=== PATIENT | male | born 1935 | race African-American/Black ===

== ENCOUNTER 2016-12-29 13:06 | Inpatient (IN) | payer BC ==
[~2016-12-29] VITALS: Ht 165.1 cm; Wt 51.8 kg
--- NOTE | ~2016-12-29 | CR72 ---
[facility] A Service of [facility] & [facility] RADIOLOGY TEXT RESULTS PATIENT: STEPHANE BECKER LOCATION: [facility] [id number] : [birth year] UNIT #: [id number] AGE: [address]: Melisa Medrano MD SEX: M ORDER DR: [id number] [facility] [address] [place], [place] [address] [id number] I MR#: [id number] Acc #: [id number] NAME: STEPHANE BECKER : 1935 SEX: M STUDY DATE/TIME: 01/03/2017 14:53 UNIT: [facility] ROOM: [facility] STUDY DESCRIPTION: CR Chest Single View Portable Attending Physician: Melisa Medrano M.D. Ordering Physician: Moiz Epps M.D. MEDICAL IMAGING REPORT This report is preliminary unless electronic signature is present EXAM AP portable chest 01/03/2017 HISTORY Tunnel catheter placement. FINDINGS There is no visible pneumothorax following placement well-positioned right IJ dialysis catheter. Shallow lung expansion. Otherwise, there is no significant change since 12/29/2016. Diffuse chronic interstitial lung disease. No airspace consolidation or pleural effusion. Stable cardiomegaly. IMPRESSION No visible pneumothorax following placement of right IJ central venous catheter. Dictated by... John Muniz M.D. THIS IS AN ELECTRONICALLY VERIFIED REPORT John Muniz M.D. at 01/04/2017 9:50 PM NEDA/mustapha TD: 01/04/2017 03:20 JOB #: [id number] MEDICAL IMAGING REPORT Page 1 of 1 COPY
--- NOTE | ~2016-12-29 | US84 ---
[id number] [facility] [address] [place], [place] [address] [id number] I MR#: [id number] Acc #: [id number] NAME: STEPHANE BECKER : 1935 SEX: M STUDY DATE/TIME: 12/29/2016 16:29 UNIT: C5B ROOM: 553 STUDY DESCRIPTION: US LE Veins Complete Arcadio Stdy Attending Physician: Sanya Whiting M.D. Ordering Physician: Joss Hurtado D.O. Primary Care Physician: Marry Fatima MEDICAL IMAGING REPORT This report is preliminary unless electronic signature is present EXAM Bilateral lower extremity Doppler venous ultrasound 12/29/2016 HISTORY Shortness breath since this morning. TECHNIQUE Venous ultrasound examination of both lower extremities was performed using grayscale, spectral Doppler and color flow Doppler imaging. FINDINGS The examination is negative. There is no evidence of deep venous thrombus from the groin to the lower calf bilaterally. Visualized greater saphenous veins are also patent. IMPRESSION Negative examination. No evidence of lower extremity deep venous thrombosis. Dictated by... Rolanda Steve M.D. THIS IS AN ELECTRONICALLY VERIFIED REPORT Rloanda Steve M.D. at 12/30/2016 7:46 PM JOSE/mustapha TD: 12/30/2016 16:58 JOB #: [id number] MEDICAL IMAGING REPORT Page 1 of 1 COPY
--- NOTE | ~2016-12-29 | CO ---
Unit #: [id number] #: [id number] Patient: STEPHANE BECKER [id number] [facility]. [place], [place] [address] [id number] I MR#: [id number] NAME: STEPHANE BECKER ROOM: 553 Age: 81 Sex: M Admission Date: 12/29/2016 : 1935 Attending Physician: Melisa Medrano M.D. Primary Care Physician: Marry Fatima CONSULTATION REPORT REASON FOR CONSULTATION Heart failure. HISTORY OF PRESENT ILLNESS This is an 81-year-old male, who is known to Dr. Arreola, who has a history of hypertension, hyperlipidemia, and chronic systolic heart failure, where his ejection fraction in 2012 was 35% to 40%. His last echocardiogram in 02/2016 showed slight improvement of his heart failure to 40% to 45% with diastolic dysfunction. There is no record of heart catheterization in the past that the patient thinks he had a stress test that was normal. The patient presents to the emergency room with shortness of breath for 1 week. His dyspnea has worsened in the last 3 days. He had leg edema that also worsened yesterday. He denies cough, fever, or chills. He has no paroxysmal nocturnal dyspnea. He usually sleeps on 2 pillows which is his normal. He has a burn in his upper chest that he relates to reflux. No chest heaviness, pressure, or tightness. He denies jaw or arm pain. His dyspnea worsened with any movement and on exertion. He came to the emergency room for evaluation, where he is found to have an elevated BNP of 2962. His creatinine was 3.8, which is worse than his baseline. He has known chronic kidney disease and sees Dr. Daugherty, but the patient refuses hemodialysis. The patient's EKG shows changes in the anterolateral leads V2 to V6, I and aVL. Troponin has been negative. PAST MEDICAL HISTORY 1. 2D echocardiogram on 07/23/2015 showed an ejection fraction of 40% to 45% with impaired left ventricular relaxation. There are moderate mitral regurgitation and hggc-[id number] tricuspid regurgitation. 2. Hypertension. 3. Hyperlipidemia. 4. Chronic systolic heart failure with ejection fraction of 35% to 40% per echocardiogram on 05/2014. 5. COPD. 6. Diverticular disease. 7. Chronic kidney disease stage 3 to 4. 8. Daily EtOH use. 9. Former smoker. PAST SURGICAL HISTORY EGD and colonoscopy. 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 He states he has been reasonably active. He quit smoking 30 years ago, but previously smoked 2 packs of cigarettes a day for more than 40 years. He drinks 2 highballs daily. FAMILY HISTORY Positive for heart disease in his brother. ALLERGIES No known drug allergies. HOME MEDICATIONS Fish oil 1200 mg daily, ferrous gluconate 325 mg daily, Simvastatin 40 mg q.h.s., calcitriol 0.25 mcg daily, aspirin 81 mg daily, hydralazine 25 mg t.i.d., Prozac 20 mg daily, carvedilol 6.25 mg b.i.d., chlorthalidone 12.5 mg daily, colchicine 0.6 mg daily, isosorbide dinitrate 20 mg q.8 hours, Losartan 100 mg daily, Megace 400 mg b.i.d., Catapres 0.2 mg daily. REVIEW OF SYSTEMS CONSTITUTIONAL: Negative for fever or chills. Denies weight gain or weight loss. HEENT: No headache, hearing, vision changes, difficulty with swallowing. No dizziness. CARDIOVASCULAR: No symptoms of angina. Has rare palpitations. Denies paroxysmal nocturnal dyspnea or orthopnea. No syncope or near syncope. RESPIRATORY: Positive for dyspnea at rest, worse on exertion. Denies cough or hemoptysis. GASTROINTESTINAL: No abdominal pain, nausea, or vomiting. No constipation. No melena. EXTREMITIES: Negative for lower extremity edema. PHYSICAL EXAMINATION VITAL SIGNS: Blood pressure 152/99, heart rate 65, temperature 98.4, BMI of 20. GENERAL: This is an 81-year-old small framed male, who is in no acute respiratory distress. NEUROLOGIC: He is awake, alert, and oriented. There are no focal weaknesses. NECK: Trachea is midline. No thyromegaly or lymphadenopathy with positive jugular venous distention at 5 cm. HEART: S1 and S2. Heart sounds are normal. No murmurs. No rubs or clicks. Regular rate and rhythm. ABDOMEN: Soft, nontender with bowel sounds present. EXTREMITIES: Without leg edema. SKIN: Warm and dry. DIAGNOSTIC STUDIES LABORATORY RESULTS: I 90, BUN 48, creatinine 3.8, sodium 140, potassium 4.6. BNP 2962. Troponin less than 0.05 x2. White count 6.3, hemoglobin 12.3, hematocrit 38.4, and platelet count is 240. IMAGING STUDIES: Chest x-ray noted for diffuse coarse interstitial changes throughout both lungs may represent chronic fibrosis. Stable cardiomegaly. CARDIOVASCULAR STUDIES: EKG; sinus bradycardia, rate of 57 beats per minute with [address] wave inversion in the anterolateral leads V1 through V6, I and aVL. There is left axis deviation. Unit #: [id number] #: [id number] Patient: STEPHANE BECKER IMPRESSION 1. Acute on chronic systolic/diastolic heart failure with reduced ejection fraction of 40% to 45%. 2. Chronic obstructive pulmonary disease. 3. Hypertension. 4. Hyperlipidemia. 5. Chronic kidney disease stage 3 to 4. PLAN 1. Cardiology was consulted for congestive heart failure. We will continue on IV diuretics as per Renal. 2. We will start the patient on dopamine drip at low dose. 3. 2D echocardiogram will be done to reassess left ventricular systolic function. 4. No ITZEL inhibitor or ARB for cardiomyopathy because of chronic kidney disease. Losartan will be discontinued. 5. The patient is adamant about not wanting hemodialysis. In view of chest pain and negative troponin, no cardiac catheterization will be done. He does have EKG changes. We will repeat EKG. 6. We will follow the patient with you. Thank you for allowing us to assist in this patient's care. Dictated by... Cam Zuniga/melanie TD: 12/30/2016 20:19 JOB #: [id number] CONSULTATION REPORT Page 1 of 1 X Hua Jimenez APRN X CONSULTATION REPORT
--- NOTE | ~2016-12-29 | CO ---
Unit #: [id number] #: [id number] Patient: STEPHANE BECKER [id number] [place], [place] [address] [id number] I MR#: [id number] NAME: STEPHANE BECKER ROOM: 553 Age: 81 Sex: M Admission Date: 12/29/2016 : 1935 Attending Physician: Melisa Medrano M.D. Primary Care Physician: Marry Fatima CONSULTATION REPORT REASON FOR CONSULTATION Management of CKD stage 4. The patient was seen and examined. The chart was reviewed. HISTORY OF PRESENT ILLNESS This is an 81-year-old male with past medical history of chronic kidney disease stage 3/4, baseline serum creatinine seems to be since June 2014 between 2.6 and 4.5, the high has been 4.5 in 07/2015, who presents with a chief complaint of gradually worsening shortness of breath and lower extremity edema. The patient cannot say for how long this has been going on as he has forgetfulness according to his son and daughter present at the bedtime. He denies chest pain, skin rashes, hemoptysis, headache, fever, chills, abdominal pain, nausea, or vomiting. He was found to have a very high BNP and chronic interstitial changes on the chest x-ray. He was given low dose of Lasix yesterday with subsequent improvement of a shortness of breath. The patient denies dysuria, hematuria, or urinary tract symptoms. He has no other complains. PAST MEDICAL HISTORY CHF; hypertension; CKD stage 3/4, baseline as above; COPD; chronic anemia. PAST SURGICAL HISTORY EGD and colonoscopy. SOCIAL HISTORY He lives with his . He quit smoking. FAMILY HISTORY Mother has diabetes and history of kidney disease. ALLERGIES No known drug allergies. HOME MEDICATIONS Reviewed. They are significant for chlorthalidone and losartan. CURRENT MEDICATIONS Dobutrex drip, Lasix was given x1, Tylenol, and hydralazine 50 mg p.o. b.i.d. REVIEW OF SYSTEMS From renal standpoint, review of systems as above. Otherwise, denies Unit #: [id number] #: [id number] Patient: STEPHANE BECKER nausea, vomiting, abdominal pain, diarrhea, chest pain, fever, chills, or neck stiffness. PHYSICAL EXAMINATION VITAL SIGNS: Temperature 98.4, pulse 65, respirations 18, oxygen saturation 95%, blood pressure 152/99. GENERAL APPEARANCE: This is a well-developed, elderly male, sitting in bed, in no acute distress. HEENT: Atraumatic, normocephalic. Pupils are round and reactive to light. Extraocular movements are intact. Pharynx pink. No exudate. NECK: Supple. No carotid bruit. CHEST: Clear to auscultation bilaterally. Decreased air entry bilaterally, especially at the bases. CARDIOVASCULAR: Regular rate and rhythm. No rubs. No gallops. ABDOMEN: Soft. Nontender. Bowel sounds present in all 4 quadrants. EXTREMITIES: No cyanosis. No clubbing. +1 ankle edema bilaterally, NEUROLOGIC: Alert, awake, and grossly nonfocal. Sensation intact. DIAGNOSTIC STUDIES LABORATORY STUDIES: Glucose 90, BUN 48, creatinine 3.8, sodium 140, potassium 4.6, chloride 112, bicarb 19. Uric acid 3.7. Calcium 8.3, total protein 6.7, albumin 3.3. Urine protein 419, urine creatinine 85. WBC 6.3, hemoglobin 12.3, hematocrit 38.4, platelet count 240. Urinalysis; yellow clear, 1.012, pH 5.5, leukocyte esterase negative, nitrite negative, protein 3+, bile negative, blood trace. IMAGING STUDIES: Chest x-ray from yesterday shows diffuse coarse reticular and reticulonodular interstitial changes, may represent chronic fibrosis, similar to previous examination, no lung consolidation, and stable cardiomegaly. ASSESSMENT AND PLAN From renal standpoint: 1. Chronic kidney disease, stage 4 with prerenal variations in serum creatinine with heart failure. 2. Metabolic acidosis. 3. Hypertension. 4. Nephrotic range proteinuria. 5. Renal cyst. 6. Dyslipidemia. 7. Heart failure. From the renal standpoint: We will resume low dose diuretics, but not chlorthalidone, we will use torsemide low dose and adjust on a daily basis. Check a renal ultrasound. Quantify proteinuria with a 24-hour urine collection for protein and creatinine. Hold losartan for now. Further workup will be done as indicated by clinical course. The patient's baseline seems to be between the high 2 and mid 4 range from computer review. The above assessment and plan were discussed at length with the patient, his son, and his daughter present at the bedtime. They all voiced understanding and agreed to proceed with a plan as outlined above. They were given the opportunities to ask questions and as stated those were answered to their satisfaction. Unit #: [id number] #: [id number] Patient: STEPHANE BECKER Dictated by..Kevin Camacho TD: 12/31/2016 09:15 JOB #: [id number] CONSULTATION REPORT Page 1 of 1 X X CONSULTATION REPORT
--- NOTE | ~2016-12-29 | CR72 ---
[facility] A Service of [facility] RADIOLOGY TEXT RESULTS PATIENT: STEPHANE BECKER LOCATION: [place] [address] : [birth year] UNIT #: [id number] AGE: [address]: Sanya Whiting MD SEX: M ORDER DR: [id number] [facility] [address] [place], [place] [address] [id number] I MR#: [id number] Acc #: [id number] NAME: STEPHANE BECKER : 1935 SEX: M STUDY DATE/TIME: 12/29/2016 14:05 UNIT: [facility] ROOM: [facility] STUDY DESCRIPTION: CR Chest Single View Portable Attending Physician: Sanya Whiting M.D. Ordering Physician: Joss Hurtado D.O. Primary Care Physician: Marry Fatima MEDICAL IMAGING REPORT This report is preliminary unless electronic signature is present EXAM AP portable chest 12/29/2016 HISTORY Shortness breath for 2 days. COMPARISON PA and lateral chest radiograph 07/23/2015. FINDINGS Diffuse, coarse reticular and reticulonodular interstitial thickening is seen throughout both lungs, thought to be similar to the 07/23/2015 examination. No lung consolidations are identified. Stable mild cardiac enlargement. No pleural effusion is seen. No pneumothorax. IMPRESSION 1. Diffuse coarse reticular and reticulonodular interstitial changes throughout both lungs may represent changes of chronic fibrosis. Findings appear similar to the 2067 examination. 2. No lung consolidations. 3. Stable cardiomegaly. Dictated by... Rolanda Steve M.D. THIS IS AN ELECTRONICALLY VERIFIED REPORT Rolanda Steve M.D. at 12/30/2016 7:46 PM LLH/mustapha TD: 12/30/2016 09:31 JOB #: [id number] [facility] A Service of [facility] RADIOLOGY TEXT RESULTS PATIENT: STEPHANE BECKER LOCATION: [place] [address] : [birth year] UNIT #: [id number] AGE: [address]: Sanya Whiting MD SEX: M ORDER DR: MEDICAL IMAGING REPORT Page 1 of 1 COPY
--- NOTE | ~2016-12-29 | OR ---
Unit #: [id number] #: [id number] Patient: STEPHANE BECKER [id number] [facility]. [place], [place] [address] [id number] I MR#: [id number] NAME: STEPHANE BECKER ROOM: 553 Date of Procedure: 01/03/2017 Admission Date: 12/29/2016 Surgeon: Moiz Epsp M.D. : 1935 Attending Physician: Melisa Medrano M.D. Primary Care Physician: Martine Fatima Aprn OPERATIVE REPORT PREOPERATIVE DIAGNOSIS Chronic kidney disease. POSTOPERATIVE DIAGNOSIS Chronic kidney disease. PROCEDURE PERFORMED Placement of right jugular tunneled dialysis catheter, left cephalic vein thrombectomy, placement of left brachiocephalic fistula. ANESTHESIA Axillary block with MAC. ESTIMATED BLOOD LOSS 10 mL. COMPLICATIONS None. INDICATIONS Mr. Stephane Becker is an 81-year-old gentleman with chronic kidney disease, who has been advised to have dialysis access in the past, but has declined. He is now admitted with shortness of breath and lower extremity edema. He is agreed to immediate and long-term dialysis access. Preoperative vein mapping showed that his left cephalic vein is patent in the upper arm, but there was thrombus in the left forearm. His left cephalic vein was tentatively going to be used for creation of a fistula. DESCRIPTION OF PROCEDURE The patient was placed in supine position. His neck, chest, and left arm were prepped and sterilely draped. The table was placed in a Trendelenburg position. The right internal jugular vein was interrogated with ultrasound and found to be patent. 1% Xylocaine was used to infiltrate the skin and subcutaneous tissue over the right jugular vein. The jugular vein was cannulated under direct ultrasound guidance and a J-wire was threaded through the cannulating needle. The wire was advanced under fluoroscopy into the right atrium. An 11-blade was used to enlarge the puncture site. Dilators were passed over the wire to enlarge the tract. An introducer sheath was placed over the wire. A 23 cm cuff to tip NeXTstep catheter was placed through the introducer sheath. The sheath was split and removed. The table was taken out of Trendelenburg position. The catheter was positioned, so that its tip was in the right Unit #: [id number] #: [id number] Patient: STEPHANE BECKER. Additional 1% Xylocaine was used to infiltrate the skin and subcutaneous tissue on the anterior chest wall. A separate stab incision was made on the chest wall. A curved metal tunneling device was used to create a subcutaneous tunnel between the chest incision and the neck incision. The outer end of the catheter was brought through the subcutaneous tunnel. The Dacron cuff of the catheter was left within the tunnel. The catheter was cut to an appropriate length. An adapter was placed on the end of the catheter. Blood was able to be easily aspirated and flushed through each lumen of the catheter. The catheter was flushed with heparinized saline and clamped. The right neck incision was closed using 4-0 Vicryl subcuticular sutures. The catheter was sutured to the skin at the exit site with interrupted 3-0 nylon. Attention was then turned to the patient's left arm. The axillary block appeared to be working well. A transverse incision was made distal to the antecubital crease. Dissection continued through the subcutaneous tissue to identify the cephalic vein. The cephalic vein appeared to have thrombus in it in the antecubital region, but was patent above that level. The vein was dissected free circumferentially for about 3 cm. The vein was ligated distally with a 3-0 silk tie and transected. The vein was able to be everted to remove what appeared to be relatively fresh thrombus from the last 2 cm of the transected segment. A 2 mm coronary dilator was able to be passed easily through the vein. A 2.5 mm and 3 mm coronary dilator were also able to be easily passed through the vein. There was good backbleeding from the vein. The vein easily flushed with heparinized saline. The cephalic vein was felt to be adequate for use as a fistula. Dissection continued through the subcutaneous tissue to identify the brachial artery. There were actually 2 arteries in the antecubital region and the more superficial femoral artery was chosen for inflow. The artery was dissected free circumferentially for about 2 cm. The patient was given heparin 5000 units intravenously. Small vascular clamps were placed proximally and distally on the artery. An 11-blade was used to make a longitudinal incision on the artery, which was extended proximally and distally with Kaur scissors. The end of the cephalic vein was beveled to fit the size of the arteriotomy. The end of the vein was sewn to the side of the artery using running 6-0 Prolene circumferentially. Prior to completion of the anastomosis, blood was flushed retrograde and antegrade. Following completion of the anastomosis, there was an easily palpable thrill in the fistula. There was also a palpable radial and ulnar pulse at the wrist. Protamine 25 mg intravenously was given to reverse the anticoagulation. The subcutaneous tissue was closed using running 3-0 Vicryl. The skin was closed using running 4-0 Vicryl subcuticular sutures. Sterile dressings were applied. Sponge and needle count were correct. The patient tolerated the procedure well. He was taken to the postanesthesia care unit in satisfactory condition. Dictated by... Kevin Walsh/melanie TD: 01/03/2017 17:28 JOB #: [id number] CC: Meir Poole M.D. Unit #: [id number] #: [id number] Patient: STEPHANE BECKER OPERATIVE REPORT Page 1 of 1 X Moiz Epps MD X PROCEDURE OPERATIVE NOTE
--- NOTE | ~2016-12-29 | US146 ---
[facility] A Service of [facility] & [facility] RADIOLOGY TEXT RESULTS PATIENT: STEPHANE BECKER LOCATION: [facility] [phone] : [birth year] UNIT #: [id number] AGE: [address]: Melisa Medrano MD SEX: M ORDER DR: [id number] [facility] [address] [place], [place] [address] [id number] I MR#: [id number] Acc #: [id number] NAME: STEPHANE BECKER : 1935 SEX: M STUDY DATE/TIME: 01/01/2017 15:37 UNIT: B ROOM: 3 STUDY DESCRIPTION: US Vein Map Hemodial Access Attending Physician: Melisa Medrano M.D. Ordering Physician: Meir Poole M.D. Primary Care Physician: Martine Fatima Aprn MEDICAL IMAGING REPORT This report is preliminary unless electronic signature is present EXAM Bilateral upper extremity venous mapping 01/01/2017 HISTORY Chronic renal insufficiency. FINDINGS The right and left cephalic and basilic veins are visualized with B-mode imaging and the right and left brachial artery were noted with B-mode imaging and color Doppler imaging. Both brachial arteries appear to be widely patent with normal waveforms. The left distal basilic vein and left proximal and mid forearm cephalic vein appeared to be with intraluminal debris and noncompressible consistent with thrombosis. This is associated with IV. The remainder of the right and left cephalic and basilic veins are widely patent and compressible throughout. The right cephalic vein is 2.4 mm proximal arm, 1.1 mm mid arm, 1.0 mm distal arm, 2.4 mm at the elbow, 2.0 mm proximal forearm, 1.9 mm mid forearm, and 1.7 mm distal forearm. The right basilic vein is 7.6 mm proximal arm, 3.4 mm mid arm, 3.5 mm distal arm, 1.7 mm at the elbow, and 2.2 mm at the proximal forearm. The left cephalic vein is 2.7 mm proximal arm, 2.2 mm mid arm, 2.2 mm distal arm, 2.8 mm at the elbow, 5.6 mm proximal forearm, 4.5 mm mid forearm, and 1.5 mm distal forearm. The left basilic vein is 5.0 mm proximal arm, 3.0 mm mid arm, 2.7 mm distal arm, 1.5 mm at the elbow, 1.9 mm proximal forearm and 1.8 mm mid forearm. IMPRESSION 1. Positive superficial venous thrombosis of the left forearm cephalic and basilic vein. 2. The right cephalic vein is not adequate for use as a hemodialysis [facility] A Service of [facility] RADIOLOGY TEXT RESULTS PATIENT: STEPHANE BECKER LOCATION: [facility] [phone] : [birth year] UNIT #: [id number] AGE: [address]: Melisa Medrano MD SEX: M ORDER DR: access but the left cephalic vein appears adequate from the proximal arm to the elbow. 3. The right basilic vein is adequate for use as a hemodialysis access from the proximal arm to the distal arm and the left basilic vein is adequate for use from the proximal arm to the distal arm. Dictated by... Felicity López M.D. THIS IS AN ELECTRONICALLY VERIFIED REPORT Felicity López M.D. at 01/08/2017 4:51 PM Ethan TD: 01/02/2017 08:40 JOB #: [id number] MEDICAL IMAGING REPORT Page 1 of 1 COPY
--- NOTE | ~2016-12-29 | DS ---
Unit #: [id number] #: [id number] Patient: STEPHANE BECKER [id number] [address] [address] [id number] I MR#: [id number] NAME: STEPHANE BECKER ROOM: 567 Age: 81 Sex: M Admission Date: 12/29/2016 : 1935 Discharge Date: 01/08/2017 Attending Physician: Melisa Medrano M.D. Primary Care Physician: Martine Fatima Aprn DISCHARGE SUMMARY PRINCIPAL DIAGNOSES 1. Acute on chronic systolic congestive heart failure with ejection fraction of 15 to 20%. 2. Endstage renal disease status post initiation of hemodialysis. 3. Chronic hypoxic respiratory failure, maintained on 2 liters of oxygen per nasal cannula with activity. 4. Moderate pulmonary hypertension with right ventricular systolic pressure of 58 millimeters of mercury. 5. Nonsustained ventricular tachycardia, now resolved. 6. Non-anion gap metabolic acidosis, now resolved with initiation of hemodialysis. 7. Hypertension. 8. Hyperlipidemia. 9. Coronary artery disease. 10. Anemia of chronic kidney disease. 11. Gastroesophageal reflux disease. 12. Gout. CONSULTANTS 1. Dr. Poole, nephrology. 2. Dr. Márquez, cardiology. 3. Dr. Epps, vascular surgery. PROCEDURES CARDIOVASCULAR: Two-dimensional echocardiogram on December 30, 2016 with ejection fraction of 15 to 20%. Inferior wall akinesis is noted. Moderately enlarged right atrium. Moderately dilated right ventricle. decreased right ventricular systolic function. Mild mitral regurgitation noted. Moderate tricuspid regurgitation. Ryiq-jl-hdbhylee pulmonic valve regurgitation. Right ventricular systolic pressure 58 mmHg. No evidence of pericardial effusion. Placement of right jugular tunnelled dialysis catheter and left cephalic vein thrombectomy and placement of left brachiocephalic fistula on January 03, 2017. I will note fistula at this point, I believe, is nonfunctional. IMAGING: Chest x-ray on December 29, 2016 with changes of chronic fibrosis of the lungs, stable cardiomegaly. Bilateral lower extremity venous Doppler, which was negative for DVT, on December 29. Bilateral renal ultrasound on December 31, 2016 with bilateral renal Unit #: [id number] #: [id number] Patient: STEPHANE BECKER cysts, largest in the left kidney measuring 2.9 cm. No hydronephrosis. Chronic medical renal disease noted. Chest x-ray on January 03, 2017 with no evidence of pneumothorax following right IJ line placement. CLINICAL HISTORY AND HOSPITAL COURSE Mr. Becker is a really nice 81-year-old male with a history of systolic congestive heart failure and chronic kidney disease stage 4 who presented to the emergency department with shortness of breath. Patient was found to have pulmonary edema secondary to a CHF exacerbation. BNP was elevated at approximately 3,000. Patient was subsequently admitted. Both cardiology and nephrology were consulted upon admission. Patient was started on IV diuretics and ultimately was placed on dobutamine therapy. He had exceptionally good diuresis, but unfortunately, his renal function began to worsen. Creatinine upon presentation was 3.8 and peaked as high as 5.2 and was not improving. Ultimately, patient was agreeable to initiation of hemodialysis. Dr. Epps was consulted, and patient underwent fistula formation and tunnelled dialysis catheter placement. The day following fistula formation, the fistula appeared to be nonfunctioning. There will be further evaluation of the fistula as an outpatient. Patient was started on hemodialysis, which he has tolerated quite well. Outpatient dialysis has now been arranged. Patient's associated CHF exacerbation has resolved. He will be discharged home later today. Please note patient was hypoxic upon presentation. This was initially felt to be secondary to CHF. However, after CHF resolved, his ambulating O2 sat still dropped to 85%, and thus, oxygen will be arranged at home with exertion. DISCHARGE CONDITION Stable. DISCHARGE STATUS Discharge to home. DISCHARGE MEDICATIONS 1. Amiodarone 200 mg 2 tablets b.i.d. through January 09, then 1 tablet p.o. daily. (Two refills given.) 2. Megace 400 mg p.o. b.i.d. 3. Coreg 6.25 mg b.i.d. 4. Bumex 2 mg b.i.d. 5. Simvastatin 40 mg at bedtime. Lisinopril 5 mg daily. 6. Iron 325 mg daily. 7. Fish oil 1,200 mg daily. 8. Colchicine 0.6 mg daily. 9. Aspirin 81 mg daily. 10. Prilosec 20 mg daily. 11. Calcitriol 0.25 mcg p.o. daily. 12. Oxygen at 2 liters per nasal cannula continuously with exertion. DISCHARGE INSTRUCTIONS Patient was instructed to follow a heart healthy diet. He can increase his activity as tolerated. To wear his oxygen at all times at 2 liters with exertion. Unit #: [id number] #: [id number] Patient: STEPHANE BECKER FOLLOW-UP Patient has outpatient hemodialysis now arranged on Saturday//Saturday with a chair time 11:30. He will follow up with Dr. Márquez per his instructions, will follow up with Dr. Poole at the hemodialysis unit and will follow up with his primary care provider, Martine Fatima, in approximately 2 weeks. NOTE: Time spent on discharge - 47 minutes. Dictated by... Melisa Medrano M.D. SAL/candido TD: 01/09/2017 08:56 JOB #: [id number] DISCHARGE SUMMARY Page 1 of 1 X Melisa Medrano MD X DISCHARGE SUMMARY
--- NOTE | ~2016-12-29 | EKG ---
PATIENT: STEPHANE BECKER UNIT #: [id number] Ventricular Rate: 57 BPM Atrial Rate: 57 BPM P-R Interval: 136 ms QRS Duration: 82 ms Q-T Interval: 488 ms QTC Calculation(Bezet): 474 ms P [place]: 74 degrees Calculated R [place]: -3 degrees Calculated T [place]: 136 degrees Diagnosis Line: Sinus bradycardia Diagnosis Line: Left ventricular hypertrophy with repolarization Diagnosis Line: abnormality Diagnosis Line: Abnormal ECG Diagnosis Line: When compared with ECG of 13-MAR-2016 17:20, Diagnosis Line: ST now depressed in Anterior leads Diagnosis Line: T wave inversion now evident in Anterior leads Diagnosis Line: Confirmed by DARLIN BISHOP MD ([id number]) on 01/02/2017 Diagnosis Line: 7:41:40 AM INTERPRETING MD: EDNA MENDEZ
--- NOTE | ~2016-12-29 | EKG ---
PATIENT: STEPHANE BECKER UNIT #: [id number] Ventricular Rate: 68 BPM Atrial Rate: 68 BPM P-R Interval: 152 ms QRS Duration: 98 ms Q-T Interval: 448 ms QTC Calculation(Bezet): 476 ms P [place]: 68 degrees Calculated R [place]: -12 degrees Calculated T [place]: 172 degrees Diagnosis Line: Normal sinus rhythm Diagnosis Line: Left ventricular hypertrophy with repolarization Diagnosis Line: abnormality Diagnosis Line: Abnormal ECG Diagnosis Line: When compared with ECG of 31-DEC-2016 05:31, Diagnosis Line: No significant change was found Diagnosis Line: Confirmed by LAMONT SAXENA MD ([id number]) on Diagnosis Line: 01/07/2017 8:04:41 AM INTERPRETING MD: HEMANTH MENDEZ
--- NOTE | ~2016-12-29 | HP ---
Unit #: [id number] #: [id number] Patient: STEPHANE BECKER [id number] [address] [address] [id number] I MR#: [id number] NAME: STEPHANE BECKER ROOM: 553 Age: 81 Sex: M Admission Date: 12/29/2016 : 1935 Attending Physician: Sanya Whiting M.D. Primary Care Physician: Marry Fatima HISTORY AND PHYSICAL CHIEF COMPLAINT Shortness of breath. HISTORY OF PRESENT ILLNESS The patient is an 81-year-old male, with a past medical history of a chronic kidney disease, hypertension, congestive heart failure, chronic obstructive pulmonary disease, brought to the emergency room complaining of the shortness of breath for two days. The patient stated that the patient has had gradual worsening of the shortness of breath associated with the leg swelling. The patient denies any chest pain, denies any nausea, or vomiting. The patient was found to have a BNP of 2,962. The chest x-ray shows the interstitial ventricular densities in the chest x-ray that is chronic, no acute findings. The patient is being admitted for the above reasons. PAST MEDICAL HISTORY History of congestive heart failure and an ejection fraction of 40% to 45%, and hypertension, chronic kidney disease which is jono 3 to 4, and chronic obstructive pulmonary disease and chronic anemia. PAST SURGICAL HISTORY Esophagogastroduodenoscopy and colonoscopy. SOCIAL HISTORY The patient lives with his . He quit smoking. 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 FAMILY HISTORY Notable for his mother having diabetes. ALLERGIES No known drug allergies. HOME MEDICATIONS The patient is on: 1. Fish oil 2. Iron 3. Simvastatin 4. Calcitriol 5. Aspirin 6. Hydralazine 7. Prilosec 8. Coreg 9. Chlorthalidone Unit #: [id number] #: [id number] Patient: STEPHANE BECKER 10. Colchicine 11. Isosorbide 12. Losartan 13. Megace REVIEW OF SYSTEMS Positive for shortness of breath, positive for the leg swelling, denies any chest pain, denies any nausea or vomiting. PHYSICAL EXAMINATION GENERAL: The patient is lying on the bed, not in acute distress. VITALS: Temperature is 97.3, pulse 61, respiratory rate 16, and blood pressure 136/67, satting 97% on two liters. HEENT: Head: Atraumatic and normocephalic. Pupils equal, round, reactive to light and accommodation. Extraocular movements are intact. NECK: Supple. LUNGS: Decreased air entry at the bases. HEART: Regular rate and rhythm. ABDOMEN: Soft, positive bowel sounds. EXTREMITIES: No cyanosis, no clubbing. Trace pedal edema. NEURO: Awake, alert, oriented, and no gross focal motor deficit. PSYCH: Mood and affect are appropriate. DIAGNOSTIC STUDIES LABORATORY DATA: Troponin less than 0.05, WBCs 6.7, hemoglobin 13.8, hematocrit 43.8, platelets 290. Sodium 143, potassium 4.9, chloride 114, bicarb 18, glucose 97, BUN 47, creatinine 3.8, calcium 8.3, AST 27, ALT 27, albumin 3.3, and INR is 1. BNP is 2962, and troponin is less than 0.05. CARDIOVASCULAR: An EKG shows sinus bradycardia at a rate of 57 beats per minute, left ventricular hypertrophy with repolarization abnormality. ASSESSMENT/PLAN 1. Eidnp-fq-qnolnbi diastolic congestive heart failure. 2. Chronic kidney injury, stage 3-4. Plan to admit the patient to the observation telemetry and will continue with IV diuretics with the Lasix if it is okay with the renal and get cardiology consult, I already spoke to them, and wanted the patient to be admitted to the medicine service and check echocardiogram, daily weight, and strict I's and O's, and repeat the labs again in the morning, and further recommendations will follow. Dictated by Kevin Duckworth TD: 12/30/2016 12:31 JOB #: [id number] Unit #: [id number] #: [id number] Patient: STEPHANE BECKER HISTORY AND PHYSICAL Page 1 of 1 X NATHANIEL STODDARD MD HISTORY AND PHYSICAL
--- NOTE | ~2016-12-29 | US77 ---
[facility] A Service of [facility] RADIOLOGY TEXT RESULTS PATIENT: STEPHANE BECKER LOCATION: [facility] 55- : 33 UNIT #: [id number] AGE: [address]: Melisa Medrano MD SEX: M ORDER DR: [id number] [facility] [address] [facility]. [place], [place] [address] [id number] I MR#: [id number] Acc #: [id number] NAME: STEPHANE BECKER : 1935 SEX: M STUDY DATE/TIME: 12/31/2016 7:53 UNIT: [facility] ROOM: [facility] STUDY DESCRIPTION: US Kidney Bilateral Complete Attending Physician: Melisa Medrano M.D. Ordering Physician: Ed Doctor [id number] [facility] Primary Care Physician: Marry Fatima MEDICAL IMAGING REPORT This report is preliminary unless electronic signature is present EXAMINATION Bilateral renal ultrasound DATE: 01/01/20002016 HISTORY Increasing amount of urination without increased frequency. Acute renal insufficiency. BUN 52. Creatinine 3.7, GFR 16.5. COMPARISON Bilateral renal ultrasound 12/19/2012. CT abdomen and pelvis without contrast 03/13/2016. FINDINGS The right kidney measures 10.5 x 6.5 x 5.8 cm. The left kidney measures 11.1 x 5.8 x 5.4 cm. The renal cortex bilaterally is thin and echogenic. Bilateral renal cortical cysts are demonstrated. A dominant index cysts within the right upper renal pole measuring approximately 1.4 cm each, and a dominant mildly complex cyst in left mid kidney with lobulated contour measures up to 2.9 cm. No suspicious solid renal mass is seen on either side. No shadowing stone or hydronephrosis is evident. Urinary bladder appears moderately distended but otherwise unremarkable. IMPRESSION 1. Features of chronic medical renal disease. Bilateral renal cysts are present, largest in the left kidney measuring nearly 2.9 cm. 2. No hydronephrosis. 3. Urinary bladder is within normal limits. Urinary bladder is moderately distended with fluid. [facility] A Service of [facility] RADIOLOGY TEXT RESULTS PATIENT: STEPHANE BECKER LOCATION: [facility] 553-01 : [birth year] UNIT #: [id number] AGE: [address]: Melisa Medrano MD SEX: M ORDER DR: Dictated by... Rolanda Steve M.D. THIS IS AN ELECTRONICALLY VERIFIED REPORT Rolanda Steve M.D. at 01/01/2017 5:04 PM Martínez/alison TD: 12/31/2016 16:16 JOB #: [id number] MEDICAL IMAGING REPORT Page 1 of 1 COPY
--- NOTE | ~2016-12-29 | EKG ---
PATIENT: STEPHANE BECKER UNIT #: [id number] Ventricular Rate: 63 BPM Atrial Rate: 63 BPM P-R Interval: 124 ms QRS Duration: 92 ms Q-T Interval: 446 ms QTC Calculation(Bezet): 456 ms P [place]: 45 degrees Calculated R [place]: 18 degrees Calculated T [place]: 180 degrees Diagnosis Line: Normal sinus rhythm Diagnosis Line: Left ventricular hypertrophy with repolarization Diagnosis Line: abnormality Diagnosis Line: Abnormal ECG Diagnosis Line: When compared with ECG of 29-DEC-2016 14:56, Diagnosis Line: (unconfirmed) Diagnosis Line: No significant change was found Diagnosis Line: Confirmed by DARLIN BISHOP MD ([id number]) on 01/02/2017 Diagnosis Line: 7:46:21 AM INTERPRETING MD: EDNA MENDEZ
--- NOTE | ~2016-12-29 | CO ---
Unit #: [id number] #: [id number] Patient: STEPHANE BECKER [id number] [address] [place], [place] [address] [id number] I MR#: [id number] NAME: STEPHANE BECKER ROOM: 553 Age: 81 Sex: M Admission Date: 12/29/2016 : 1935 Attending Physician: Melisa Medrano M.D. Primary Care Physician: Marry Fatima Consultation Date: 01/01/2017 CONSULTATION REPORT CHIEF COMPLAINT Chronic kidney disease. HISTORY Mr. Becker is an 81-year-old gentleman, who presented to the emergency room with shortness of breath and lower extremity edema. He has a history of chronic kidney disease, stage 3 to 4, who has been advised to consider dialysis in the past, but has declined. He has been treated with dobutamine and diuresis since admission and is now feeling better. He has demonstrated progression of his chronic kidney disease. He is now agreeable to considering dialysis. He has never been on dialysis previously. He has never had any prior access procedures. He is right-handed. He is mildly short of breath at the time of evaluation, but denies any other complaints. PAST MEDICAL HISTORY Chronic kidney disease, hypertension, congestive heart failure, chronic obstructive pulmonary disease, and chronic anemia. PAST SURGICAL HISTORY Esophagogastroduodenoscopy and colonoscopy. MEDICATIONS Fish oil, iron, simvastatin, calcitriol, aspirin, hydralazine, Prilosec, Coreg, chlorthalidone, colchicine, isosorbide, losartan, and Megace. He has also been on IV dobutamine this admission. ALLERGIES None. SOCIAL HISTORY He is and lives with his in [place]. He quit smoking 30 years ago. He drinks 2 shots of alcohol per day. 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 FAMILY HISTORY Positive for diabetes and kidney disease in his mother. REVIEW OF SYSTEMS Positive for shortness of breath and leg swelling. Otherwise, 10-point review of systems is negative. Unit #: [id number] #: [id number] Patient: STEPHANE BECKER PHYSICAL EXAMINATION VITAL SIGNS: Temperature 98.1, pulse 87, respirations 20, blood pressure 147/75. GENERAL APPEARANCE: Well-developed black male. Pleasant and cooperative. Fully alert and oriented. Good mood. Appropriate affect. Fair historian. No acute distress. HEENT: Extraocular movements are intact. No xanthelasma of the eyelids. Oral mucosa is pink and moist. NECK: No JVD. No cervical bruits. LUNGS: Fine bibasilar rales. Otherwise clear. No use of accessory respiratory muscles. HEART: Regular rate and rhythm without murmur. No extra heart sounds. ABDOMEN: Soft, nondistended, and nontender. No palpable masses. No palpable hepatomegaly or splenomegaly. EXTREMITIES: Hands and feet are pink and warm. Easily palpable radial pulses bilaterally. Trace edema of both ankles. DIAGNOSTIC STUDIES IMAGING STUDIES: He had a vein mapping performed on 01/01/2017 which I reviewed. He has superficial vein thrombosis of his left cephalic and basilic veins in the forearm. His left cephalic vein appears adequate for use as a fistula in the antecubital region and upper arm. The right cephalic vein is small and inadequate for use as a fistula. Both basilic veins are adequate for use as a fistula in the upper arm, but becomes small in the antecubital region. IMPRESSION 1. Chronic kidney disease. Anticipated to require hemodialysis. 2. History of congestive heart failure. 3. Hypertension. 4. Chronic obstructive pulmonary disease. 5. Chronic anemia. PLAN My recommendation would be to place a left brachiocephalic fistula for long-term dialysis access. The risks, benefits, and alternatives of this procedure were reviewed with the patient and his family in detail. He has agreed to proceed. Since he is not on dialysis currently, we can discuss the timing of his procedure. His procedure can be done as an inpatient if he remains in the hospital for the next few days. Otherwise, he can be discharged and scheduled to return as an outpatient. Dictated by... Kevin Walsh/melanie TD: 01/02/2017 11:22 JOB #: [id number] CC: Aditi Arreola M.D. Unit #: [id number] #: [id number] Patient: STEPHANE BECKER CONSULTATION REPORT Page 1 of 1 X Self,Moiz MENDEZ X CONSULTATION REPORT
[~2016-12-29 13:06] MED LIST: ANTACID650 MG PO; ASPIRIN EC81 M1 PO; CALCITRIOL0.25 MCG PO; CHLORTHALIDONE25 M1 PO; CHLORTHALIDONE25 MG PO; CLORPRES PO; COLCHICINE0.6 M1 PO; COLCRYS0.6 M2 PO; COREG6.25 M1 PO; FISH OIL 1,2001 EAC5 PO; HYDRALAZINE HC100 MG PO; IRON1 TAB PO; ISORDIL PO; LOSARTAN POTAS100 MG PO; LUTEIN20 M1 PO; MEGACE ORA40 MG/ML S PO; PRILOSEC PO; PRILOSEC20 MG PO; SIMVASTATIN40 MG PO
[2016-12-29 14:01] LABS: POC - CKMB 2.3 ng/mL (0.0-7.9); POC - TROPONIN <0.05 ng/mL (<=0.05)
[2016-12-29 14:58] LABS: BASOPHIL# 0.1 X10e3 (0-0.3); BASOPHIL% 1.5 % (0-2.5); EOSINOPHIL# 0.3 X10e3 (0-0.7); EOSINOPHIL% 3.9 % (0.0-7.0); HEMATOCRIT 43.8 % (38.0-50.0); HEMOGLOBIN 13.8 gm/dL (13.0-16.0); LYMPHOCYTE# 1.6 X10e3 (1.0-3.5); LYMPHOCYTE% 23.6 % (17.0-45.0); MEAN CELL VOLUME 89.8 FL (83-96); MEAN CORPUSCULAR HEMOGLOBIN 28.3 PG (28-34); MEAN CORPUSCULAR HGB CONC 31.6 g/dL (30-36); MEAN PLATELET VOLUME 9.5 FL (6.5-11.5); MONOCYTE# 0.6 X10e3 (0-1.0); MONOCYTE% 9.6 % (3.0-12.0); NEUTROPHIL# 4.1 X10e3 (1.5-7.1); NEUTROPHIL% 61.4 % (40-75); PLATELET COUNT 219 X10e3 (140-420); RED BLOOD COUNT 4.88 X10e (3.90-5.60); RED CELL DISTRIBUTION WIDTH 16.3 % (11.0-15.5); WHITE BLOOD COUNT 6.7 X10e3 (4.0-10.5)
[2016-12-29 15:03] LABS: PARTIAL THROMBOPLASTIN TIME 20.1 SECONDS (23.5-31.3); PROTHROMBIN TIME (PATIENT) 10.8 SECONDS (10.0-11.7)
[2016-12-29 15:08] LABS: DIFF IND NO
[2016-12-29 15:12] LABS: ALBUMIN SERUM 3.3 g/dL (3.5-5.0); BILIRUBIN, DIRECT 0.2 mg/dL (0.0-0.2); BILIRUBIN,INDIRECT 0.6 mg/dL (0.0-0.9); BILIRUBIN,TOTAL 0.8 mg/dL (0.2-2.0); BUN/CREATININE RATIO 12.36; CALCIUM SERUM 8.3 mg/dL (8.4-10.2); CREATININE SERUM 3.8 mg/dL (0.6-1.4); POTASSIUM 4.9 mmol/L (3.5-5.1); PROTEIN TOTAL SERUM 6.7 g/dL (6.0-8.3)
[2016-12-29 16:30] LABS: POC - CKMB 1.7 ng/mL (0.0-7.9); POC - TROPONIN <0.05 ng/mL (<=0.05)
[2016-12-29 20:51] LABS: URINE SOURCE CLEAN CATCH
[2016-12-29 20:56] LABS: URINE APPEARANCE CLEAR; URINE BILIRUBIN NEG (NEG); URINE BLOOD TRACE (NEG); URINE COLOR YELLOW; URINE GLUCOSE NEG (NEG); URINE KETONE NEG (NEG); URINE LEUKOCYTE ESTERASE NEG (NEG); URINE NITRATE NEG (NEG); URINE PH 5.5 (5-8); URINE PROTEIN 3+ (NEG); URINE SPECIFIC GRAVITY 1.012 (1.003-1.035); URINE UROBILINOGEN 0.2 MG/DL (NEG)
[2016-12-29 20:58] LABS: URBCS1 AUWI 0-2 /[HPF] (0-2); URINE BACTERIA AUWI NEG (NEGATIVE); URINE SQUAMOUS EPITHELIAL CELL NONE SEEN /[HPF]; UWBCS1 AUWI 0-2 (0-5)
[2016-12-29 20:59] LABS: CULTURE INDICATED? NO
[2016-12-30] MEDS ORDERED: CLONIDINE PO (02:28)
[2016-12-30 05:33] LABS: BASOPHIL# 0.1 X10e3 (0-0.3); BASOPHIL% 0.9 % (0-2.5); EOSINOPHIL# 0.2 X10e3 (0-0.7); EOSINOPHIL% 3.8 % (0.0-7.0); HEMATOCRIT 38.4 % (38.0-50.0); HEMOGLOBIN 12.3 gm/dL (13.0-16.0); LYMPHOCYTE# 1.8 X10e3 (1.0-3.5); LYMPHOCYTE% 28.3 % (17.0-45.0); MEAN CELL VOLUME 88.5 FL (83-96); MEAN CORPUSCULAR HEMOGLOBIN 28.2 PG (28-34); MEAN CORPUSCULAR HGB CONC 31.9 g/dL (30-36); MEAN PLATELET VOLUME 8.7 FL (6.5-11.5); MONOCYTE# 0.7 X10e3 (0-1.0); MONOCYTE% 10.9 % (3.0-12.0); NEUTROPHIL# 3.5 X10e3 (1.5-7.1); NEUTROPHIL% 56.1 % (40-75); PLATELET COUNT 240 X10e3 (140-420); RED BLOOD COUNT 4.34 X10e (3.90-5.60); RED CELL DISTRIBUTION WIDTH 15.8 % (11.0-15.5); WHITE BLOOD COUNT 6.3 X10e3 (4.0-10.5)
[2016-12-30 05:37] LABS: DIFF IND NO
[2016-12-30 06:14] LABS: BUN/CREATININE RATIO 12.63; CALCIUM SERUM 8.3 mg/dL (8.4-10.2); CREATININE SERUM 3.8 mg/dL (0.6-1.4); POTASSIUM 4.6 mmol/L (3.5-5.1)
[2016-12-31 07:12] LABS: BUN/CREATININE RATIO 14.05; CALCIUM SERUM 8.4 mg/dL (8.4-10.2); CREATININE SERUM 3.7 mg/dL (0.6-1.4); GLOM FILT RATE Estimated 16.5 mL/min (>60); POTASSIUM 4.5 mmol/L (3.5-5.1)
[2016-12-31 16:41] LABS: URINE CREATININE 46.3 mg/dL
[2016-12-31 16:42] LABS: U PROTIEN QUANT CALCULATION 1.51 GM/24H (0.10-0.15); URINE 24 HOUR CREATININE CALC 0.7 G/24HR (0.7-2.0)
[2017-01-01 05:29] LABS: HEMATOCRIT 35.9 % (38.0-50.0); HEMOGLOBIN 11.9 gm/dL (13.0-16.0); MEAN CELL VOLUME 86.3 FL (83-96); MEAN CORPUSCULAR HEMOGLOBIN 28.5 PG (28-34); MEAN CORPUSCULAR HGB CONC 33.1 g/dL (30-36); MEAN PLATELET VOLUME 8.4 FL (6.5-11.5); RED BLOOD COUNT 4.16 X10e (3.90-5.60); RED CELL DISTRIBUTION WIDTH 15.7 % (11.0-15.5); WHITE BLOOD COUNT 6.2 X10e3 (4.0-10.5)
[2017-01-01 06:12] LABS: BUN/CREATININE RATIO 13.5; CALCIUM SERUM 8.2 mg/dL (8.4-10.2); POTASSIUM 5.1 mmol/L (3.5-5.1)
[2017-01-02 05:25] LABS: HEMATOCRIT 35.6 % (38.0-50.0); HEMOGLOBIN 11.9 gm/dL (13.0-16.0); MEAN CELL VOLUME 85.5 FL (83-96); MEAN CORPUSCULAR HEMOGLOBIN 28.7 PG (28-34); MEAN CORPUSCULAR HGB CONC 33.5 g/dL (30-36); MEAN PLATELET VOLUME 8.4 FL (6.5-11.5); RED BLOOD COUNT 4.16 X10e (3.90-5.60); RED CELL DISTRIBUTION WIDTH 15.8 % (11.0-15.5); WHITE BLOOD COUNT 6.9 X10e3 (4.0-10.5)
[2017-01-02 06:15] LABS: BUN/CREATININE RATIO 13.86; CALCIUM SERUM 8.5 mg/dL (8.4-10.2); CREATININE SERUM 4.4 mg/dL (0.6-1.4); GLOM FILT RATE Estimated 13.4 mL/min (>60); MAGNESIUM 2.1 mg/dL (1.6-3.0); POTASSIUM 5.1 mmol/L (3.5-5.1)
[2017-01-03 04:04] LABS: SPE A1GLOB (PNL) 0.3 g/dL (0.2-0.3); SPE A2GLOB (PNL) 0.9 g/dL (0.5-0.9); SPE BETA 1 GLOBULIN 0.5 g/dL (0.4-0.6); SPE BETA 2 GLOBULIN 0.3 g/dL (0.2-0.5); SPE GAMMA (PNL) 0.6 g/dL (0.8-1.7); SPETP (PNL) 5.5 g/dL (6.1-8.1)
[2017-01-03 06:48] LABS: HEMOGLOBIN 11.8 gm/dL (13.0-16.0); MEAN CELL VOLUME 85.8 FL (83-96); MEAN CORPUSCULAR HEMOGLOBIN 28.1 PG (28-34); MEAN CORPUSCULAR HGB CONC 32.8 g/dL (30-36); MEAN PLATELET VOLUME 8.4 FL (6.5-11.5); RED BLOOD COUNT 4.2 X10e (3.90-5.60); RED CELL DISTRIBUTION WIDTH 16.1 % (11.0-15.5); WHITE BLOOD COUNT 6.7 X10e3 (4.0-10.5)
[2017-01-03 07:25] LABS: CALCIUM SERUM 8.5 mg/dL (8.4-10.2); GLOM FILT RATE Estimated 11.5 mL/min (>60); MAGNESIUM 2.1 mg/dL (1.6-3.0); POTASSIUM 5.1 mmol/L (3.5-5.1)
[2017-01-04 03:32] LABS: CALCIUM (PTHINTACT) 8.3 mg/dL (8.6-10.3)
[2017-01-04 06:43] LABS: HEMATOCRIT 34.9 % (38.0-50.0); HEMOGLOBIN 11.4 gm/dL (13.0-16.0); MEAN CELL VOLUME 86.4 FL (83-96); MEAN CORPUSCULAR HEMOGLOBIN 28.2 PG (28-34); MEAN CORPUSCULAR HGB CONC 32.7 g/dL (30-36); MEAN PLATELET VOLUME 8.3 FL (6.5-11.5); RED BLOOD COUNT 4.04 X10e (3.90-5.60); WHITE BLOOD COUNT 7.1 X10e3 (4.0-10.5)
[2017-01-04 07:34] LABS: BUN/CREATININE RATIO 13.26; CALCIUM SERUM 8.3 mg/dL (8.4-10.2); CREATININE SERUM 5.2 mg/dL (0.6-1.4); GLOM FILT RATE Estimated 10.9 mL/min (>60); MAGNESIUM 2.1 mg/dL (1.6-3.0); POTASSIUM 4.9 mmol/L (3.5-5.1)
[2017-01-04 14:08] LABS: UPE RAND ALPHA1 GLOB 4 % (()); UPE RAND PROT/CREAT 1751 (22-128); UPE RANDOM ALB (PNL) 72 % (()); UPE RANDOM ALPHA 2 GLOB 3 % (()); UPE RANDOM BETA GLOB 9 % (()); UPE RANDOM CREATININE 51.4 mg/dL (20-370); UPE RANDOM GAMMA GLOB 11 % (()); UPE RANDOM TOTAL PROTEIN (PNL) 90 mg/dL (5-25)
[2017-01-05 07:05] LABS: HEMATOCRIT 36.6 % (38.0-50.0); MEAN CELL VOLUME 86.6 FL (83-96); MEAN CORPUSCULAR HEMOGLOBIN 28.5 PG (28-34); MEAN CORPUSCULAR HGB CONC 32.9 g/dL (30-36); MEAN PLATELET VOLUME 8.2 FL (6.5-11.5); RED BLOOD COUNT 4.22 X10e (3.90-5.60); RED CELL DISTRIBUTION WIDTH 15.7 % (11.0-15.5); WHITE BLOOD COUNT 6.5 X10e3 (4.0-10.5)
[2017-01-05 08:18] LABS: BUN/CREATININE RATIO 14.09; CALCIUM SERUM 8.3 mg/dL (8.4-10.2); CREATININE SERUM 4.4 mg/dL (0.6-1.4); GLOM FILT RATE Estimated 13.4 mL/min (>60); MAGNESIUM 2.2 mg/dL (1.6-3.0); POTASSIUM 4.7 mmol/L (3.5-5.1)
[2017-01-05 23:11] LABS: MAGNESIUM 1.9 mg/dL (1.6-3.0); POTASSIUM 4.8 mmol/L (3.5-5.1)
[2017-01-07 06:32] LABS: HEMATOCRIT 33.7 % (38.0-50.0); HEMOGLOBIN 11.2 gm/dL (13.0-16.0); MEAN CORPUSCULAR HEMOGLOBIN 28.6 PG (28-34); MEAN CORPUSCULAR HGB CONC 33.3 g/dL (30-36); MEAN PLATELET VOLUME 8.3 FL (6.5-11.5); RED BLOOD COUNT 3.92 X10e (3.90-5.60); RED CELL DISTRIBUTION WIDTH 15.5 % (11.0-15.5); WHITE BLOOD COUNT 7.1 X10e3 (4.0-10.5)
[2017-01-07 08:01] LABS: BUN/CREATININE RATIO 10.32; CALCIUM SERUM 8.1 mg/dL (8.4-10.2); CREATININE SERUM 6.2 mg/dL (0.6-1.4); GLOM FILT RATE Estimated 8.8 mL/min (>60)
[2017-01-07 08:04] LABS: HA AB IGM (HEPPAN) Nonreactive (()); HB CORE AB IGM (HEPPAN) Nonreactive (Nonreactive); HB S AG (HEPPAN) Nonreactive (Nonreactive); HEP C AB (HEPPAN) Nonreactive (Nonreactive); HEP C AB SIGNAL TO CUTOFF 0.05 ratio (<1.00)
[2017-01-08 07:41] LABS: BUN/CREATININE RATIO 7.55; CALCIUM SERUM 8.1 mg/dL (8.4-10.2); CREATININE SERUM 4.5 mg/dL (0.6-1.4); POTASSIUM 4.4 mmol/L (3.5-5.1)
[2017-01-08] MEDS ORDERED: AMIODARONE HCL200 MG PO ×2 (15:02→15:03)
[2017-01-08] MEDS ORDERED: BUMEX2 MG PO (15:04)
[2017-01-08] MEDS ORDERED: LISINOPRIL5 MG PO (15:05)
== END 2017-01-08 17:28 | disposition home or self-care (01) | DRG 252 ==
LOC: CED 13:06 → CEDOF 17:45 → C5B 17:45 → CEDOF 18:00 → CED 18:00 → C5B 21:05 → CEDOF 21:05 → C5B 12-30 06:11 → C5C 01-04 16:31
PROVIDERS: Emergency Medicine; Family Medicine; Internal Medicine; Internal Medicine Cardiovascular Disease; Internal Medicine Nephrology; Nurse Practitioner; Surgery Vascular Surgery
PROC: B24BZZZ Ultrasonography of Heart with Aorta (ICD-10-PCS; 2016-12-30)
PROC: 0JH63XZ Insertion of Tunneled Vascular Access Device into Chest Subcutaneous Tissue and Fascia, Percutaneous Approach (ICD-10-PCS; 2017-01-03)
PROC: 05HM33Z Insertion of Infusion Device into Right Internal Jugular Vein, Percutaneous Approach (ICD-10-PCS; 2017-01-03)
PROC: B543ZZA Ultrasonography of Right Jugular Veins, Guidance (ICD-10-PCS; 2017-01-03)
PROC: 03180ZD Bypass Left Brachial Artery to Upper Arm Vein, Open Approach (ICD-10-PCS; principal; 2017-01-03 12:00)
PROC: 05CF0ZZ Extirpation of Matter from Left Cephalic Vein, Open Approach (ICD-10-PCS; 2017-01-03 12:00)
PROC: 5A1D60Z (ICD-10-PCS; 2017-01-04)
DX: I13.2 Hypertensive heart and chronic kidney disease with heart failure and with stage 5 chronic kidney disease, or end stage renal disease (principal); J96.21 Acute and chronic respiratory failure with hypoxia; I47.2 Ventricular tachycardia; E87.2 Acidosis; N18.6 End stage renal disease; N18.4 Chronic kidney disease, stage 4 (severe); N17.9 Acute kidney failure, unspecified; I82.602 Acute embolism and thrombosis of unspecified veins of left upper extremity; I27.2 Other secondary pulmonary hypertension; I50.43 Acute on chronic combined systolic (congestive) and diastolic (congestive) heart failure; Z87.891 Personal history of nicotine dependence; E78.5 Hyperlipidemia, unspecified; I25.10 Atherosclerotic heart disease of native coronary artery without angina pectoris; D63.1 Anemia in chronic kidney disease; M10.9 Gout, unspecified; K21.9 Gastro-esophageal reflux disease without esophagitis; J44.9 Chronic obstructive pulmonary disease, unspecified; R80.8 Other proteinuria; N28.1 Cyst of kidney, acquired; Z83.3 Family history of diabetes mellitus; Z82.49 Family history of ischemic heart disease and other diseases of the circulatory system; Z84.1 Family history of disorders of kidney and ureter
CPT/HCPCS: 36415; 71010; 76000; 76770; 77001; 80048; 80074; 80076; 81003; 82310; 82553; 82570; 82947; 83735; 83880; 83970; 84100; 84132; 84156; 84165; 84166; 84484; 85025; 85027; 85610; 85730; 93005; 93306; 93970; 94760; 94761; 97110; 97116; 97162; 97165; 97530; 97535; 99285; C1752; G0365; G8978-GP; G8979-GP; G8980-GP; G8987-GO; G8988-GO; G8989-GO; J0690; J1250; J1644; J1940; J2405; J2720; J2795; J3010